=== PATIENT | male | born 1945 | race Caucasian/White ===

== ENCOUNTER 2024-12-09 16:34 | Emergency (ER) | payer BC ==
[~2024-12-09] VITALS: Ht 180.3 cm; Wt 82.6 kg
[2024-12-09 17:45] VITALS: TEMP 98.1
[2024-12-09 18:19] LABS: PLATELET COUNT (AUTO) 179 K/uL (150-450); RED BLOOD CELL COUNT(AUTO) 4.23 MIL/uL (4.5-6.0); RED CELL DISTRIBUTION WIDTH 14.0 % (11.5-15.0); WHITE BLOOD COUNT (AUTO) 6.8 K/uL (4.3-11.0)
[2024-12-09 18:29] LABS: CALCIUM, SERUM 8.8 mg/dL (8.5-10.1); CREATININE 0.9 mg/dL (0.6-1.3); SODIUM SERUM 132 mmol/L (136-145); UREA NITROGEN, BLOOD 21 mg/dL (7-18)
[2024-12-09 18:33] LABS: INR 0.94 (0.91-1.10)
[2024-12-09 19:44] VITALS: BP 140/75; O2SAT 98
== END 2024-12-09 19:44 | disposition home or self-care (01) ==
LOC: ER 17:42
DX: M25.561 Pain in right knee (principal); E87.1 Hypo-osmolality and hyponatremia; I10 Essential (primary) hypertension; N40.0 Benign prostatic hyperplasia without lower urinary tract symptoms; Z86.2 Personal history of diseases of the blood and blood-forming organs and certain disorders involving the immune mechanism
CPT/HCPCS: 36415; 80048-TC; 85025-TC; 85730-TC; 93971-TC